=== PATIENT | female | born 1985 | race Caucasian/White ===

== ENCOUNTER 2017-09-06 07:15 | Inpatient (IN) | payer OTHER ==
[~2017-09-06] VITALS: Ht 162.6 cm; Wt 77.3 kg
[2017-09-06] VITALS (49 sets, daily range): BP systolic 103–146; BP diastolic 0–88; PULSE 71–112; TEMP 97.3–98.8
[~2017-09-06 07:15] MED LIST: CALCIUM CARBON650 M2; MOTRIN 600600 MG/TAB PO; PERCOCET 325 MG1 TA2 PO; PRENATAL VITAMI1 T12 PO; SYNTHROID0.137 MG; TYLENOL 325MG325 MG PO; VITAMIN D 1001000 IU
[2017-09-06 08:00] LABS: BASO % 0.4 % (0.0-2.0); EOS # 0.1 (0.0-0.7); EOS % 0.7 % (0-4.0); GRAN # 8.1 (1.4-6.5); GRAN % 75.5 % (42.2-75.2); HEMOGLOBIN 11.7 g/dl (12.5-16.0); LYMPH % 18.8 % (20.0-51.0); MEAN CELL VOLUME 88 fl (80.0-100.0); MEAN CORPUSCULAR HEMOGLOBIN 32 pg (27.0-31.0); MEAN CORPUSCULAR HGB CONC 36 g/dl (33.0-37.0); MEAN PLATELET VOLUME 11.1 fl (7.4-10.4); MONO # 0.4 (0.1-0.6); MONO % 3.8 % (1.7-9.3); PLATELET COUNT 165 K/mm3 (130-400); RED BLOOD COUNT 3.72 M/mm3 (4.10-5.30); REDCELL DISTRIBUTION WIDTH-CV 13.1 % (11.5-14.5)
[2017-09-06 08:08] LABS: HEMATOCRIT 32.9 % (37.0-47.0)
[2017-09-07 01:30] VITALS: BP 120/74; PULSE 77; TEMP 97.6
[2017-09-07 05:30] VITALS: BP 114/67; PULSE 76; TEMP 97.6
[2017-09-07 08:28] LABS: HEMATOCRIT 28.6 % (37.0-47.0); HEMOGLOBIN 9.8 g/dl (12.5-16.0)
[2017-09-07 08:30] VITALS: BP 100/82; PULSE 84; TEMP 98.1
[2017-09-07] MEDS ORDERED: PERCOCET 325 MG1 TA2 PO (08:41)
[2017-09-07] MEDS ORDERED: IBU600 MG PO (08:41)
[2017-09-07 20:42] VITALS: BP 114/71; PULSE 85; TEMP 98.1
[2017-09-08 08:40] VITALS: BP 114/76; PULSE 70; TEMP 98.1
== END 2017-09-08 10:00 | disposition home or self-care (01) | DRG 775 ==
LOC: LDR 07:15 → OB 21:30
PROVIDERS: Obstetrics & Gynecology
PROC: 10E0XZZ Delivery of Products of Conception, External Approach (ICD-10-PCS; principal; 2017-09-06)
PROC: 0KQM0ZZ Repair Perineum Muscle, Open Approach (ICD-10-PCS; 2017-09-06)
DX: O48.0 Post-term pregnancy (principal); C73 Malignant neoplasm of thyroid gland; O26.893 Other specified pregnancy related conditions, third trimester; O99.824 Streptococcus B carrier state complicating childbirth; O70.1 Second degree perineal laceration during delivery; Z3A.40 40 weeks gestation of pregnancy; Z37.0 Single live birth
CPT/HCPCS: J2405; J2540; J2590; J2795; J7120